=== PATIENT | male | born 1965 | race African-American/Black ===

== ENCOUNTER 2024-04-22 17:56 | Emergency (ER) | payer SELFPAY ==
[~2024-04-22] VITALS: Ht 172.7 cm; Wt 68.0 kg
[2024-04-22 18:32] VITALS: O2SAT 100
[2024-04-22] MEDS ORDERED: IBUP-2029 MT (19:07)
[2024-04-22 19:23] VITALS: BP 117/78; PULSE 79; RESP 20; TEMP 98
== END 2024-04-22 19:27 | disposition home or self-care (01) ==
LOC: ER 17:56
DX: S60.222A Contusion of left hand, initial encounter (principal); S40.022A Contusion of left upper arm, initial encounter; Z85.9 Personal history of malignant neoplasm, unspecified; W18.39XA Other fall on same level, initial encounter; Y93.89 Activity, other specified; Y92.89 Other specified places as the place of occurrence of the external cause; Y99.8 Other external cause status
CPT/HCPCS: 73130; 99283